=== PATIENT | female | born 1995 | race Two or more races ===

== ENCOUNTER 2025-05-26 07:25 | Emergency (ER) | payer MEDICAID ==
[~2025-05-26] VITALS: Ht 157.5 cm; Wt 46.3 kg
[2025-05-26 07:35] VITALS: BP 120/84; TEMP 99.2; O2SAT 100
[2025-05-26] MEDS ORDERED: AMOX500C2 PO (08:24)
[2025-05-26] MEDS ORDERED: NEOM10DR11 RIGHT EAR (08:24)
== END 2025-05-26 08:42 | disposition home or self-care (01) ==
LOC: ER 07:30
DX: H60.591 Other noninfective acute otitis externa, right ear (principal)